=== PATIENT | female | born 1980 | race Caucasian/White ===

== ENCOUNTER → 2018-12-12 17:03 | Outpatient (CLI) | payer OTHER ==
[2013-11-05 18:32] VITALS: BMI 34.8
[~2018-12-12 17:03] MED LIST: LORTAB 5/500 TA1 TA2 PO
== END | disposition home or self-care (01) ==
LOC: D.MAMMO 10-12 13:15
PROVIDERS: ATTEND Family Medicine
DX: Z12.31 Encounter for screening mammogram for malignant neoplasm of breast (principal)

== ENCOUNTER 2019-09-14 14:15 | Emergency (ER) | payer SELFPAY ==
[2019-09-14 14:20] VITALS: Ht 152.4 cm
[2019-09-14] MEDS ORDERED: CEPHALEXIN250 MG/5 M PO (16:33)
[2019-09-14] MEDS ORDERED: MUPIROCIN22 GM TOPICAL (16:33)
[2019-09-14 16:51] VITALS: BP 151/76
== END 2019-09-14 16:52 | disposition home or self-care (01) ==
LOC: D.ER 14:15
DX: M79.9 Soft tissue disorder, unspecified (principal); J06.9 Acute upper respiratory infection, unspecified; L03.311 Cellulitis of abdominal wall

== ENCOUNTER 2020-12-04 15:15 | Outpatient (CLI) | payer OTHER ==
[2019-09-14 14:20] VITALS: BMI 34.8
[~2020-12-04 15:15] MED LIST changes: +CEPHALEXIN250 MG/5 M PO; +MUPIROCIN22 GM TOPICAL
== END 2020-12-04 23:59 | disposition home or self-care (01) ==
LOC: D.MAMMO 15:15
PROVIDERS: ATTEND Family Medicine
DX: Z12.31 Encounter for screening mammogram for malignant neoplasm of breast (principal)